=== PATIENT | female | born 1945 | race Two or more races ===

== ENCOUNTER 2017-10-20 09:47 | Outpatient (CLI) | payer OTHER ==
[~2017-10-20 09:47] MED LIST: ANTIVERT25 M1 PO; MUCINEX D1 TAB.SR1 PO
== END 2017-10-20 09:53 | disposition home or self-care (01) ==
LOC: SONOGRAMA 09:47
DX: E04.2 Nontoxic multinodular goiter (principal)

== ENCOUNTER → 2017-10-30 | Emergency (ER) | payer OTHER ==
[~2017-10-30] VITALS: Ht 154.9 cm; Wt 62.1 kg
[~2017-10-30] MED LIST changes: +PROZAC20 MG
== END | disposition home or self-care (01) ==
LOC: ER 14:31
DX: S00.83XA Contusion of other part of head, initial encounter (principal); S30.0XXA Contusion of lower back and pelvis, initial encounter; W18.39XA Other fall on same level, initial encounter; Y93.89 Activity, other specified; Y92.89 Other specified places as the place of occurrence of the external cause; Y99.8 Other external cause status

== ENCOUNTER 2018-08-03 10:47 | Emergency (ER) | payer OTHER ==
[~2018-08-03] VITALS: Ht 154.9 cm; Wt 62.6 kg
[2018-08-03] MEDS ORDERED: FOSAMAX PLUS D1 EACH (11:23)
== END 2018-08-03 13:11 | disposition home or self-care (01) ==
LOC: ER 10:47
DX: S30.0XXA Contusion of lower back and pelvis, initial encounter (principal); W18.39XA Other fall on same level, initial encounter; Y93.89 Activity, other specified; Y92.89 Other specified places as the place of occurrence of the external cause; Y99.8 Other external cause status

== ENCOUNTER 2018-11-06 13:08 | Outpatient (CLI) | payer OTHER ==
[~2018-11-06 13:08] MED LIST changes: +FOSAMAX PLUS D1 EACH
== END 2018-11-06 15:09 | disposition home or self-care (01) ==
LOC: MAMO-SONO 13:08
DX: N64.51 Induration of breast (principal); Z12.31 Encounter for screening mammogram for malignant neoplasm of breast; Q61.01 Congenital single renal cyst

== ENCOUNTER 2019-06-11 15:50 | Outpatient (CLI) | payer OTHER | END 2019-06-11 16:00 | disposition home or self-care (01) | LOC: RAD 15:50 | DX: J11.1 Influenza due to unidentified influenza virus with other respiratory manifestations (principal); R07.89 Other chest pain ==

== ENCOUNTER 2020-05-01 09:56 | Outpatient (CLI) | payer OTHER | END 2020-05-01 09:58 | disposition home or self-care (01) | LOC: RAD 09:56 | PROVIDERS: ATTEND Orthopaedic Surgery Hand Surgery | DX: M25.511 Pain in right shoulder (principal) ==

== ENCOUNTER 2020-09-18 09:49 | Outpatient (CLI) | payer OTHER ==
[~2020-09-18 09:49] MED LIST changes: +DICLOFENAC POTA50 MG PO
[2020-12-26] MEDS ORDERED: DICLOFENAC POTA50 MG PO (12:01)
== END 2020-09-18 10:13 | disposition home or self-care (01) ==
LOC: TOM 09:49
PROVIDERS: ATTEND Orthopaedic Surgery Adult Reconstructive Orthopaedic Surgery
DX: M25.511 Pain in right shoulder (principal); M75.111 Incomplete rotator cuff tear or rupture of right shoulder, not specified as traumatic; M75.41 Impingement syndrome of right shoulder

== ENCOUNTER → 2020-09-29 | Emergency (ER) | payer OTHER | END | disposition home or self-care (01) | LOC: ER 12:15 | DX: Z48.02 Encounter for removal of sutures (principal) ==

== ENCOUNTER 2021-01-14 13:12 | Outpatient (CLI) | payer OTHER | END 2021-01-14 13:13 | disposition home or self-care (01) | LOC: NUCLEAR 13:12 | PROVIDERS: ATTEND Internal Medicine | DX: M81.0 Age-related osteoporosis without current pathological fracture (principal); M89.9 Disorder of bone, unspecified; M54.5 Low back pain; M65.342 Trigger finger, left ring finger; M10.071 Idiopathic gout, right ankle and foot ==

== ENCOUNTER 2021-02-05 09:00 | Outpatient (CLI) | payer OTHER | END 2021-02-05 09:15 | disposition home or self-care (01) | LOC: PPH VACUNA 09:00 | PROVIDERS: ATTEND Emergency Medicine Pediatric Emergency Medicine | DX: Z23 Encounter for immunization (principal) ==

== ENCOUNTER 2021-07-08 12:04 | Outpatient (CLI) | payer OTHER | END 2021-07-08 12:08 | disposition home or self-care (01) | LOC: LAB 12:04 | DX: Z03.818 Encounter for observation for suspected exposure to other biological agents ruled out (principal); Z20.828 Contact with and (suspected) exposure to other viral communicable diseases ==

== ENCOUNTER 2021-07-18 14:36 | Emergency (ER) | payer OTHER ==
[~2021-07-18] VITALS: Ht 157.5 cm; Wt 62.6 kg
[2021-07-18] MEDS ORDERED: DUI500 PO (19:10)
[2021-07-18] MEDS ORDERED: ACETAMINOP-COD118 ML PO (19:13)
== END 2021-07-18 20:25 | disposition home or self-care (01) ==
LOC: ER 14:36
DX: L03.114 Cellulitis of left upper limb (principal)

== ENCOUNTER 2021-11-18 10:48 | Outpatient (CLI) | payer OTHER ==
[~2021-11-18 10:48] MED LIST changes: +ACETAMINOP-COD118 ML PO; +DUI500 PO
== END 2021-11-18 11:00 | disposition home or self-care (01) ==
LOC: SONOGRAMA 10:48
PROVIDERS: ATTEND Specialist
DX: E04.2 Nontoxic multinodular goiter (principal)

== ENCOUNTER 2022-10-11 09:52 | Outpatient (CLI) | payer OTHER | END 2022-10-11 09:57 | disposition home or self-care (01) | LOC: TOM 09:52 | PROVIDERS: ATTEND Specialist | DX: U07.1 COVID-19 (principal) ==

== ENCOUNTER 2023-02-25 11:03 | Outpatient (CLI) | payer OTHER | END 2023-02-25 11:07 | disposition home or self-care (01) | LOC: RAD 11:03 | PROVIDERS: ATTEND Orthopaedic Surgery Sports Medicine | DX: M25.572 Pain in left ankle and joints of left foot (principal) ==

== ENCOUNTER 2025-03-06 08:12 | Outpatient (CLI) | payer OTHER ==
[~2025-03-06 08:12] MED LIST changes: +ARTHRITIS PAIN150 G1 TOP; +MELOXICAM15 MG PO
== END 2025-03-06 08:29 | disposition home or self-care (01) ==
LOC: TOM 08:12
DX: K30 Functional dyspepsia (principal); R10.11 Right upper quadrant pain
CPT/HCPCS: 74177; Q9965